=== PATIENT | male | born 1970 | race Caucasian/White ===

== ENCOUNTER 2023-10-05 07:35 | Outpatient (OUT) | payer OTHER, SELFPAY ==
[2023-10-05 08:09] LABS: Basophils Percent Auto 0.5 % (0.2-2.0); Eosinophils Absolute Auto 0.3 10^3/uL (0.0-0.7); Eosinophils Percent Auto 3.7 % (0.9-7.0); Hematocrit 41.2 % (42.0-54.0); Hemoglobin 13.9 g/dL (14.0-18.0); Immature Granulocytes Abs Auto 0.02 10^3/uL (0.00-0.03); Immature Granulocytes Pct Auto 0.3 % (0.0-0.5); Lymphocytes Absolute Auto 2.4 10^3/uL (1.2-3.8); Lymphocytes Percent Auto 30.4 % (20.5-60.0); Mean Corpuscular HGB Conc 33.7 g/dL (29.9-35.2); Mean Corpuscular Hemoglobin 28.4 pg (25.9-34.0); Mean Corpuscular Volume 84.1 fL (80.0-94.0); Mean Platelet Volume 9.4 fL (9.5-13.5); Monocytes Absolute Auto 0.8 10^3/uL (0.3-0.8); Monocytes Percent Auto 10.1 % (1.7-12.0); Neutrophils Absolute Auto 4.3 10^3/uL (1.4-6.5); Platelet Count 225 10^3/uL (150-450); Red Cell Distribution Width 13.5 % (11.0-15.0); White Blood Count 7.9 10^3/uL (4.0-11.0)
[2023-10-05 08:57] LABS: Alanine Aminotransferase 37 U/L (16-63); Albumin Level 3.6 g/dL (3.4-5.0); Alkaline Phosphatase 57 U/L (46-116); Anion Gap 14.5; Aspartate Amino Transferase 30 U/L (15-37); Calcium 8.9 mg/dL (8.5-10.1); Carbon Dioxide 24.7 mmol/L (21.0-32.0); Chloride 102 mmol/L (98-107); Chol HDL Ratio 4.4; Cholesterol 235 mg/dL (<=200); Estimated GFR (African America >60 (>=60); Estimated GFR (Non-African Ame >60 (>=60); Globulin 3.6 g/dL; Glucose 118 mg/dL (74-106); HDL Cholesterol 54 mg/dL (40-60); Potassium 4.2 mmol/L (3.5-5.1); Sodium 137 mmol/L (136-145); Total Protein 7.2 g/dL (6.4-8.2); Triglycerides 163 mg/dL (<=150); VLDL CHOLESTEROL 32.6 mg/dL
[2023-10-05 09:13] LABS: Estimated Average Glucose 128 mg/dL; Glycohemoglobin A1C 6.1 % (4.5-6.2)
== END 2023-10-05 07:36 | disposition home or self-care (01) ==
LOC: LAB 07:38
PROVIDERS: PCP Family Medicine; Visit Provider Family Medicine
DX: Z00.00 Encounter for general adult medical examination without abnormal findings (principal)
CPT/HCPCS: 36415; 80053; 80061; 83036; 85025; G0103

== ENCOUNTER 2023-12-19 07:25 | Outpatient (OUT) | payer OTHER, SELFPAY ==
--- OUTSIDE RECORDS SUMMARY | 2023-12-19 07:29 | XMS_ITS | CCD ---
Author Organization [facility] Care Team Providers Care Executive Chairman Of The Board Name Role Phone DR SALOMON SANFORD Primary Care Unavailable CLARIBEL, DR LATIF Admitting Unavailable CLARIBEL, DR LATIF Attending Unavailable CLARIBEL, DR LATIF Consulting Unavailable DR SALOMON SANFORD Admitting Unavailable CLARIBEL, DR LATIF Attending Unavailable CLARIBEL, DR LATIF Consulting Unavailable DR SALOMON SANFORD Primary Care Unavailable Problems Active Problems Problem Classification Problem Date Documented Da te Episodic/Chronic Chronic obstructive pulmonary disease and bronchiectasis (1 source) Bronchitis, not specified as acute or chronic; Translations: [BRONCHITIS NOT SPEC ACUTE/CHRON] Onset: 09-02-2022 Episodic Other screening for suspected conditions (not mental disorders or infectious disease) (1 source) Encounter for screening for malignant neoplasm of prostate; Translations: [ENC SCREEN MALIG NEOPLASM PROSTATE] Onset: 10-16-2022 Episodic Unclassified (3 sources) CONTACT W/AND (SUSP) EXPOS COVID-19; Translations: [CONTACT W/AND (SUSP) EXPOS COVID-19] Onset: 09-02-2022 Past or Other Problems Problem Classification Problem Date Documented Da te Episodic/Chronic Unclassified (1 source) CONTACT W/AND (SUSP) EXPOS COVID-19; Translations: [CONTACT W/AND (SUSP) EXPOS COVID-19] Onset: 08-28-2022 Results Test Name Value Interpretation Reference Range Facil ity INSULINon 10-12-2022 Insulin 13.5 uIU/mL Normal 2.6-24.9 [facility] Comment on above: Performed By: #### I NSULIN #### [facility] [address] [address] [address] Reji Simmons CBC AUTO DIFFon 10-11-2022 BASO # 0.1 103/ul Normal 0.0-0.1 [facility] Comment on above: Performed By: #### C BC #### [facility] [address] [place] [address] Dr. Reji Simmons Basophils/100 WBC (Bld) 0.8 % Normal 0.2-2.0 [facility] Comment on above: Performed By: #### C BC #### [facility] [address] [place] [address] Dr. Reji Simmons EO # 0.2 103/ul Normal 0.0-0.7 [facility] Comment on above: Performed By: #### C BC #### [facility] [address] [place] [address] Dr. Reji Simmons Eosinophils/100 WBC (Bld) 3.2 % Normal 0.9-7.0 [facility] Comment on above: Performed By: #### C BC #### [facility] [address] [place] [address] Dr. Reji Simmons Erythrocyte distribution width (RBC) [Ratio] 14.1 % Normal 11.0-15.0 [facility] Comment on above: Performed By: #### C BC #### [facility] [address] [place] [address] Dr. Reji Simmons Hematocrit (Bld) [Volume fraction] 42.3 % Normal 42.0-54.0 [facility] Comment on above: Performed By: #### C BC #### [facility] [address] [place] [address] Dr. Reji Simmons Hemoglobin (Bld) [Mass/Vol] 14.0 g/dL Normal 14.0-18.0 [facility] Comment on above: Performed By: #### C BC #### [facility] [address] [place] [address] Dr. Reji Simmons IG # 0.01 10e3/ul Normal 0.00-0.03 [facility] Comment on above: Performed By: #### C BC #### [facility] [address] [place] [address] Dr. Reji Simomns IG % 0.2 % Normal 0.0-0.5 [facility] Comment on above: Performed By: #### C BC #### [facility] [address] [place] [address] Dr. Reji Simmons LYMPH # 2.3 103/ul Normal 1.2-3.8 [facility] Comment on above: Performed By: #### C BC #### [facility] [address] [place] [address] Dr. Reji Simmons Lymphocytes/100 WBC (Bld) 35.1 % Normal 20.5-60.0 [facility] Comment on above: Performed By: #### C BC #### [facility] [address] [place] [address] Dr. Reji Simmons MANUAL DIFF REQ NO Normal [facility] Comment on above: Performed By: #### C BC #### [facility] [address] [place] [address] Dr. Reji Simmons MCH (RBC) [Entitic mass] 27.2 pg Normal 25.9-34.0 [facility] Comment on above: Performed By: #### C BC #### [facility] [address] [place] [address] Dr. Reji Simmons MCHC (RBC) [Mass/Vol] 33.1 g/dL Normal 29.9-35.2 [facility] Comment on above: Performed By: #### C BC #### [facility] [address] [place] [address] Dr. Reji Simmons MCV (RBC) [Entitic vol] 82.3 fL Normal 80.0-94.0 [facility] Comment on above: Performed By: #### C BC #### [facility] [address] [place] [address] Dr. Reji Simmons MONO # 0.6 103/ul Normal 0.3-0.8 [facility] Comment on above: Performed By: #### C BC #### [facility] [address] [place] [address] Dr. Reji Simmons Monocytes/100 WBC (Bld) 9.8 % Normal 1.7-12.0 [facility] Comment on above: Performed By: #### C BC #### [facility] [address] [address] [address] Reji Simmons NEUT # 3.4 103/ul Normal 1.4-6.5 [facility] Comment on above: Performed By: #### C BC #### [facility] [address] [address] [address] Reji Simmons Neutrophils/100 WBC (Bld) 50.9 % Normal 43.0-75.0 [facility] Comment on above: Performed By: #### C BC #### [facility] [address] [address] [address] Reji Simmons Platelet mean volume (Bld) [Entitic vol] 8.8 fL Critically low 9.5-13.5 [facility] Comment on above: Performed By: #### C BC #### [facility] [address] [place] [address] Dr. Reji Simmons PLT 232 103/ul Normal 150-450 [facility] Comment on above: Performed By: #### C BC #### [facility] [address] [place] [address] Dr. Reji Simmons RBC 5.14 106/ul Normal 4.70-6.10 [facility] Comment on above: Performed By: #### C BC #### [facility] [address] [address] [address] Reji Simmons WBC 6.6 103/ul Normal 4.0-11.0 [facility] Comment on above: Performed By: #### C BC #### [facility] [address] [place] [address] Dr. Reji Simmons GLYCOHEMOGLOBIN A1Con 2022 ADA RECOMMENDATION SEE BELOW Normal [facility] Comment on above: Result Comment: ADA RECOMMENDED LIMIT 4.0 - 6.0 ADA THERAPEUTIC TARGET < 7.0 ACTION SUGGESTED > 7.0 Performed By: #### A 1C #### [facility] [address] [place] [address] Dr. Reji Simmons Glucose [Mass/Vol] 128 mg/dL Normal [facility] Comment on above: Performed By: #### A 1C #### [facility] [address] [address] [address] Reji Simmons HbA1c (Bld) [Mass fraction] 6.1 % Normal 4.5-6.2 [facility] Comment on above: Performed By: #### A 1C #### [facility] [address] [address] [address] Reji Simmons LIPID PROFILEon 10-11-2022 CHOL-HDL RATIO NORM SEE BELOW Normal [facility] Comment on above: Result Comment: 3.3 - 4.4 LOW RISK 4.4 - 7.1 AVERAGE RISK 7.1 - 11.0 MODERATE RISK >11.0 HIGH RISK Performed By: #### U SHAMIR, LIPID, CMP #### [facility] [address] [address] [address] Reji Simmons Cholesterol [Mass/Vol] 215 mg/dL Critically high <=200 [facility] Comment on above: Performed By: #### U SHAMIR, LIPID, CMP #### [facility] [address] [address] [address] Reji Simmons Cholesterol in HDL [Mass/Vol] 50 mg/dL Normal 40-60 [facility] Comment on above: Performed By: #### U SHAMIR, LIPID, CMP #### [facility] [address] [address] [address] Reji Simmons Cholesterol in LDL [Mass/Vol] 131.6 mg/dL Normal [facility] Comment on above: Performed By: #### U SHAMIR, LIPID, CMP #### [facility] [address] [address] [address] Reji Simmons Cholesterol.total/Cho lesterol in HDL [Mass ratio] 4.3 {ratio} Normal [facility] Comment on above: Performed By: #### U SHAMIR, LIPID, CMP #### [facility] [address] [address] [address] Reji Simmons HDL NORMAL > or = 60 mg/dl - LOW CARDIOVASCULAR RISK <40 mg/dl - HIGH CARDIOVASCULAR RISK Normal [facility] Comment on above: Performed By: #### U SHAMIR, LIPID, CMP #### [facility] [address] [address] [address] Reji Simmons LDL CALC NORMAL SEE BELOW Normal [facility] Comment on above: Result Comment: <100 mg/dl OPTIMAL 100 - 129 mg/dl NEAR OR ABOVE OPTIMAL 130 - 159 mg/dl BORDERLINE HIGH 160 - 189 mg/dl HIGH >190 mg/dl VERY HIGH Performed By: #### U SHAMIR, LIPID, CMP #### [facility] [address] [address] [address] Reji Simmons Triglyceride [Mass/Vol] 167 mg/dL Critically high <=150 [facility] Comment on above: Performed By: #### U SHAMIR, LIPID, CMP #### [facility] [address] [address] [address] Reji Simmons VLDL CALC 33.4 mg/dL Normal [facility] Comment on above: Performed By: #### U SHAMIR, LIPID, CMP #### [facility] [address] [place] [address] Dr. Reji Simmons PROF 14(COMP METB)on 023 Albumin [Mass/Vol] 3.9 g/dL Normal 3.4-5.0 [facility] Comment on above: Performed By: #### U SHAMIR, LIPID, CMP #### [facility] [address] [address] [address] Reji Simmons Albumin/Globulin [Mass ratio] 1.2 {ratio} Normal [facility] Comment on above: Performed By: #### U SHAMIR, LIPID, CMP #### [facility] [address] [address] [address] Reji Simmons ALP [Catalytic activity/Vol] 63 U/L Normal 46-116 [facility] Comment on above: Performed By: #### U SHAMIR, LIPID, CMP #### [facility] [address] [address] [address] Reji Simmons ALT [Catalytic activity/Vol] 45 U/L Normal 16-63 [facility] Comment on above: Performed By: #### U SHAMIR, LIPID, CMP #### [facility] [address] [address] [address] Reji Simmons Anion gap [Moles/Vol] 11.6 mmol/L Normal [facility] Comment on above: Performed By: #### U SHAMIR, LIPID, CMP #### [facility] [address] [address] [address] Reji Simmons AST [Catalytic activity/Vol] 34 U/L Normal 15-37 [facility] Comment on above: Performed By: #### U SHAMIR, LIPID, CMP #### [facility] [address] [address] [address] Reji Simmons Bilirubin [Mass/Vol] 0.9 mg/dL Normal 0.2-1.0 [facility] Comment on above: Performed By: #### U SHAMIR, LIPID, CMP #### [facility] [address] [place] [address] Dr. Reji Simmons Calcium [Mass/Vol] 9.0 mg/dL Normal 8.5-10.1 [facility] Comment on above: Performed By: #### U SHAMIR, LIPID, CMP #### [facility] [address] [place] [address] Dr. Reji Simmons Chloride [Moles/Vol] 104 mmol/L Normal 98-107 [facility] Comment on above: Performed By: #### U SHAMIR, LIPID, CMP #### [facility] [address] [place] [address] Dr. Reji Simmons CO2 [Moles/Vol] 29.2 mmol/L Normal 21.0-32.0 [facility] Comment on above: Performed By: #### U SHAMIR, LIPID, CMP #### [facility] [address] [place] [address] Dr. Reji Simmons Creatinine [Mass/Vol] 0.84 mg/dL Normal 0.70-1.30 [facility] Comment on above: Performed By: #### U SHAMIR, LIPID, CMP #### [facility] [address] [place] [address] Dr. Reji Simmons EGFR-AF MALTESE >60 Normal >=[address] [facility] Comment on above: Performed By: #### U SHAMIR, LIPID, CMP #### [facility] [address] [place] [address] Dr. Reji Simmons EGFR-NON AF MALTESE >60 Normal >=60 [facility] Comment on above: Performed By: #### U SHAMIR, LIPID, CMP #### [facility] [address] [address] [address] Reji Simmons Globulin (S) [Mass/Vol] 3.2 g/dL Normal [facility] Comment on above: Performed By: #### U SHAMIR, LIPID, CMP #### [facility] [address] [address] [address] Reji Simmons Glucose [Mass/Vol] 108 mg/dL Critically high 74-106 [facility] Comment on above: Performed By: #### U SHAMIR, LIPID, CMP #### [facility] [address] [place] [address] Dr. Reji Simmons Potassium [Moles/Vol] 3.8 mmol/L Normal 3.5-5.1 [facility] Comment on above: Performed By: #### U SHAMIR, LIPID, CMP #### [facility] [address] [place] [address] Dr. Reji Simmons Protein [Mass/Vol] 7.1 g/dL Normal 6.4-8.2 [facility] Comment on above: Performed By: #### U SHAMIR, LIPID, CMP #### [facility] [address] [place] [address] Dr. Reji Simmons Sodium [Moles/Vol] 141 mmol/L Normal 136-145 [facility] Comment on above: Performed By: #### U SHAMIR, LIPID, CMP #### [facility] [address] [place] [address] Dr. Reji Simmons Urea nitrogen [Mass/Vol] 18.0 mg/dL Normal 7.0-18.0 [facility] Comment on above: Performed By: #### U SHAMIR, LIPID, CMP #### [facility] [address] [place] [address] Dr. Reji Simmons Urea nitrogen/Creatinine [Mass ratio] 21.4 mg/mg Normal [facility] Comment on above: Performed By: #### U SHAMIR, LIPID, CMP #### [facility] [address] [place] [address] Dr. Reji Simmons URIC ACID SERUMon 10-11-2022 Urate [Mass/Vol] 5.6 mg/dL Normal 3.5-7.[address] [facility] Comment on above: Performed By: #### U SHAMIR, LIPID, CMP #### [facility] [address] [address] [address] Reji Simmons Covid-19 PCR (CVDTB)on SARS-CoV-2 (COVID-19) RNA LAWRENCE+probe Ql (Unsp spec) Not detected Normal NOT DETECTED [facility] Comment on above: Result Comment: When diagnostic testing is negative, the possibility of a false negative should be considered in the context of a patient's recent exposures and the presence of clinical signs and symptoms consistent with SARS-CoV-2. This test is not yet approved or cleared by the [place] FDA. When there are no FDA-approved or cleared tests available, and other criteria are met, FDA can make tests available under an emergency access mechanism called an Emergency Use Authorization (EUA). The EUA for this test is supported by the [place] of Health and Human Service's declaration that circumstances exist to justify the emergency use of in vitro diagnostics for the detection and/or diagnosis of the virus that causes COVID-19. This EUA will remain in effect for the duration of the COVID-19 declaration justifying emergency of IVDs, unless it is terminated or revoked by the FDA (after which the test may no longer be used). Performed By: #### C VDTBH #### [facility] [address] [place] [address] Dr. Reji Simmons INFLUENZA A AND B AGon 08-28 INFLUANEGH SEE BELOW Normal [facility] Comment on above: Result Comment: Nega tive for Flu A protein angiten. Infection due to Flu A cannot be ruled out. Flu A angiten in the sample may be below the detection limit of the test. Performed By: #### I NFLUAB #### [facility] [address] [place] [address] Dr. Reji Simmons INFLUBNEGH SEE BELOW Normal [facility] Comment on above: Result Comment: Nega tive for Flu B protein antigen. Infection due to Flu B cannot be ruled out. Flu B antigen in the sample may be below the detection limit of the test. Performed By: #### I NFLUAB #### [facility] [address] [address] [address] Reji Simmons INFLUENZA A AG Negative Normal NEGATIVE SEE COMMENT [facility] Comment on above: Performed By: #### I NFLUAB #### [facility] [address] [address] [address] Reji Simmons INFLUENZA B AG Negative Normal NEGATIVE SEE COMMENT [facility] Comment on above: Performed By: #### I NFLUAB #### [facility] [address] [address] [address] Reji Simmons INTERNAL CONTROLS Within Normal Limits Normal Wi thin Normal Limits [facility] Comment on above: Performed By: #### I NFLUAB #### [facility] [address] [place] [address] Dr. Reji Simmons Encounters Encounter Date Encounter Type Care Provider Facility Start: 10-16-2022 Encounter for genera l adult medical examination without abnormal findings DR SALOMON SANFORD [facility] Start: 10-11-2022 End: 10-12-[address] SALOMON SANFORD Facility:[facility] Start: 10-11-2022 End: 10-12-2022 Encounter for general adult medical examination without abnormal findings DR SALOMON SANFORD Facility:[facility] Start: 08-28-2022 End: 08-28-[address] SALOMON SANFORD Facility:[facility] Procedures Date Procedure Procedure Detail Performing Clinician Start: 10-11-[address] LUIS ALFREDO SANFORD Comment on above: Performed By: #### P SASC #### [facility] [address] [place] [address] Dr. Reji Simmons Payers Date Payer Category Payer Unknown [id number] 1970 Unknown [id number] 1958 Unknown [id number] Summary Purpose Family History No Family History Records Found Advance Directives No Advanced Directives Records Found Additional Source Comments (unrecognized sect ion and content) No Status Records Found INFORMATION SOURCE (unrecogn ized section and content) DATE CREATED AUTHOR 10/18/2022 Vidya oleary FOR RECORDS PERTAINING TO PATIENTS WHO ARE OR HAVE BEEN ENROLLED IN A CHEMICAL DEPENDENCY/SUBSTANCEABUSE PROGRAM, SOME INFORMATION MAY BE OMITTED. This clinical summary was aggregated from multiple sources. Caution should be exercised in using it in the provision of clinical care. This summary normalizes information from multiple sources, and as a consequence, information in this document may materially change the coding, format and clinical context of patient data. In addition, data may be omitted in some cases. CLINICAL DECISIONS SHOULD BE BASED ON THE PRIMARY CLINICAL RECORDS. [facility] [address] provides no warranty or guarantee of the accuracy or completeness of information in this document.
[2023-12-19 08:24] LABS: Basophils Absolute Auto 0.1 10^3/uL (0.0-0.1); Basophils Percent Auto 0.8 % (0.2-2.0); Eosinophils Absolute Auto 0.3 10^3/uL (0.0-0.7); Eosinophils Percent Auto 4.5 % (0.9-7.0); Hematocrit 41.9 % (42.0-54.0); Hemoglobin 13.8 g/dL (14.0-18.0); Immature Granulocytes Abs Auto 0.01 10^3/uL (0.00-0.03); Immature Granulocytes Pct Auto 0.2 % (0.0-0.5); Lymphocytes Absolute Auto 2.3 10^3/uL (1.2-3.8); Lymphocytes Percent Auto 36.4 % (20.5-60.0); Mean Corpuscular HGB Conc 32.9 g/dL (29.9-35.2); Mean Corpuscular Hemoglobin 27.9 pg (25.9-34.0); Mean Corpuscular Volume 84.6 fL (80.0-94.0); Monocytes Absolute Auto 0.7 10^3/uL (0.3-0.8); Monocytes Percent Auto 10.4 % (1.7-12.0); Neutrophils Percent Auto 47.7 % (43.0-75.0); Platelet Count 243 10^3/uL (150-450); Red Blood Count 4.95 10^6/uL (4.70-6.10); White Blood Count 6.3 10^3/uL (4.0-11.0)
[2023-12-19 08:43] LABS: Alanine Aminotransferase 45 U/L (16-63); Albumin Globulin Ratio 1.1; Albumin Level 3.7 g/dL (3.4-5.0); Alkaline Phosphatase 62 U/L (46-116); Anion Gap 13.2; Aspartate Amino Transferase 27 U/L (15-37); Bilirubin Total 0.8 mg/dL (0.2-1.0); Calcium 8.9 mg/dL (8.5-10.1); Carbon Dioxide 28.1 mmol/L (21.0-32.0); Chloride 103 mmol/L (98-107); Estimated GFR (African America >60 (>=60); Estimated GFR (Non-African Ame >60 (>=60); Globulin 3.4 g/dL; Glucose 106 mg/dL (74-106); Potassium 4.3 mmol/L (3.5-5.1); Sodium 140 mmol/L (136-145); Total Protein 7.1 g/dL (6.4-8.2)
[2023-12-19 08:47] LABS: INR 0.98; Prothrombin Time 10.4 sec (9.0-11.6)
[2023-12-19 09:08] LABS: Partial Thromboplastin Time 28.8 sec (22.3-36.2)
== END 2023-12-19 07:26 | disposition home or self-care (01) ==
LOC: LAB 07:28
PROVIDERS: PCP Family Medicine; Visit Provider Family Medicine
DX: K62.5 Hemorrhage of anus and rectum (principal)
CPT/HCPCS: 36415; 80053; 85025; 85610; 85730

== ENCOUNTER 2023-12-20 15:37 | Outpatient (REF) | payer OTHER, SELFPAY ==
[2023-12-21 15:34] LABS: Occult Blood Negative
== END 2023-12-20 15:38 | disposition home or self-care (01) ==
LOC: LAB 15:37
PROVIDERS: PCP Family Medicine; Visit Provider Family Medicine
DX: K62.5 Hemorrhage of anus and rectum (principal)
CPT/HCPCS: G0328

== ENCOUNTER 2024-09-25 13:48 | Outpatient (OUT) | payer OTHER, SELFPAY ==
--- OUTSIDE RECORDS SUMMARY | 2024-09-25 13:53 | XMS_ITS | CCD ---
Author Organization [facility] Care Team Providers Care Parts Counter Clerk Name Role Phone DR SALOMON LANDA Primary Care Unavailable DR SALOMON LANDA Admitting Unavailable DR SALOMON LANDA Attending Unavailable DR SALOMON LANDA Consulting Unavailable DR SALOMON LANDA Admitting Unavailable DR SALOMON LANDA Attending Unavailable DR SALOMON LANDA Consulting Unavailable DR SALOMON LANDA Primary Care Unavailable Salomon Landa Primary Care Physician Bucky CHAMBERLAIN Attending Unavailable Salomon Landa Referring Unavailable Allergies Allergy Classification Reported Allergen(s) Allergy Type Date of Onset Reaction(s) Facility (1 source) No Known Medication Allergies; Translations: [No Known Medication Allergies] Propensity to adverse reactions (disorder) [facility] Medications Current Medications Medication Drug Class(es) Dates Sig (Normalized) Sig (Original) tadalafil 20 mg oral tablet (1 source) Phosphodiesterase 5 Inhibitor Start: 08-22-2024 take 1 tablet by mouth once daily as needed tadalafil 20 mg Tab 20 mg = 1 tab(s), Oral, Daily, PRN erectile dysfunction, Refills(s) 0 Start Date: 08/22/24 Status: Ordered Problems Active Problems Problem Classification Problem Date Documented Date Episodic/Chronic Chronic obstructive pulmonary disease and bronchiectasis (1 source) Bronchitis, not specified as acute or chronic; Translations: [BRONCHITIS NOT SPEC ACUTE/CHRON] Onset: 09-02-20 Episodic Disorders of lipid metabolism (1 source) Hypercholesterolemia 08-22-2024 Chronic Gastrointestinal hemorrhage (2 sources) Hemorrhage of rectum and anus; Translations: [Hemorrhage of anus and rectum] Onset: 09-09-20 Episodic Other male genital disorders (1 source) Impotence 08-22-2024 Chronic Other nutritional; endocrine; and metabolic disorders (1 source) Body mass index 30+ - obesity 09-09-2024 Chronic Other nutritional; endocrine; and metabolic disorders (1 source) Obesity caused by energy imbalance 08-22-2024 Chronic Other screening for suspected conditions (not mental disorders or infectious disease) (1 source) Encounter for screening for malignant neoplasm of prostate; Translations: [ENC SCREEN MALIG NEOPLASM PROSTATE] Onset: 10-16-19 23 Episodic Unclassified (3 sources) CONTACT W/AND (SUSP) EXPOS COVID-19; Translations: [CONTACT W/AND (SUSP) EXPOS COVID-19] Onset: 09-02-20 Past or Other Problems Problem Classification Problem Date Documented Da te Episodic/Chronic Unclassified (1 source) CONTACT W/AND (SUSP) EXPOS COVID-19; Translations: [CONTACT W/AND (SUSP) EXPOS COVID-19] Onset: 08-28-2022 Results Test Name Value Interpretation Reference Range Facility Ambulatory Visit Summaryon 1 11-10-2023 Ambulatory Visit Summary Ambulatory Visit Summary JONATAN ANDUJAR :1970 Visit Date:09/09/2024 Ambulatory Visit Instructions Your Care Team Attending Physician - BULMARO RAMIREZ, Bucky Orat Primary Care Physician - Salomon Landa MD Referring Physician - Salomon Landa MD This Is Your Medications List Contact prescribing physician if questions or concerns tadalafil (tadalafil 20 mg Tab) Procedures Performed Colonoscopy (09/11/2016), EGD - esophagogastroduodenoscopy (09/11/2016), Arthroscopy of knee, Traumatic amputation of left index finger. Discharge Vitals Heart Rate (Peripheral) 72 Respiratory Rate 16 Blood Pressure 138/84 Height 177.8 cm Height 70 in Weight 105.6 kg Weight 232.808 lb BMI 33.4 Medications What How Much When Instructions Unchanged tadalafil (tadalafil 20 mg Tab) 1 Tablets By Mouth Every day as needed for erectile dysfunction Contact prescribing physician if questions or concerns Allergies No Known Allergies No Known Medication Allergies Problems Ongoing - Any problem that you are currently receiving treatment for. BMI 33.0-33.9,adult BRBPR (bright red blood per rectum) Erectile dysfunction Hypercholesterolemia Obesity due to excess calories Patient Survey You may receive a survey via text or e-mail asking about your office visit. Please share your experience with us by completing your survey. We appreciate your feedback and thank you for choosing us for your care. Normal [facility] INSULINon 10-12-2022 Insulin 13.5 uIU/mL Normal 2.6-24.9 [facility] Comment on above: Performed By: #### I NSULIN #### [facility] [address] [place] [address] Dr. Reji Simmons CBC AUTO DIFFon 10-11-2022 BASO # 0.1 103/ul Normal 0.0-0.1 [facility] Comment on above: Performed By: #### C BC #### [facility] [address] [place] [address] Dr. Reji Simmons Basophils/100 WBC (Bld) 0.8 % Normal 0.2-2.0 [facility] Comment on above: Performed By: #### C BC #### [facility] [address] [place] [address] Dr. Reji Simmons EO # 0.2 103/ul Normal 0.0-0.7 [facility] Comment on above: Performed By: #### C BC #### [facility] [address] [place] [address] Dr. Reji Simmons Eosinophils/100 WBC (Bld) 3.2 % Normal 0.9-7.0 [facility] Comment on above: Performed By: #### C BC #### [facility] [address] [place] [address] Dr. Reji Simmons Erythrocyte distribution width (RBC) [Ratio] 14.1 % Normal 11.0-15.0 [facility] Comment on above: Performed By: #### C BC #### [facility] [address] [place] [address] Dr. Reji Simmons Hematocrit (Bld) [Volume fraction] 42.3 % Normal 42.0-54.0 [facility] Comment on above: Performed By: #### C BC #### [facility] [address] [place] [address] Dr. Reji Simmons Hemoglobin (Bld) [Mass/Vol] 14.0 g/dL Normal 14.0-18.0 [facility] Comment on above: Performed By: #### C BC #### [facility] [address] [place] [address] Dr. Reji Simmons IG # 0.01 10e3/ul Normal 0.00-0.03 [facility] Comment on above: Performed By: #### C BC #### [facility] [address] [place] [address] Dr. Reji Simmons IG % 0.2 % Normal 0.0-0.5 [facility] Comment on above: Performed By: #### C BC #### [facility] [address] [place] [address] Dr. Reji Simmons LYMPH # 2.3 103/ul Normal 1.2-3.8 [facility] Comment on above: Performed By: #### C BC #### [facility] [address] [place] [address] Dr. Reji Simmons Lymphocytes/100 WBC (Bld) 35.1 % Normal 20.5-60.0 [facility] Comment on above: Performed By: #### C BC #### [facility] [address] [place] [address] Dr. Reji Simmons MANUAL DIFF REQ NO Normal [facility] Comment on above: Performed By: #### C BC #### [facility] [address] [place] [address] Dr. Reji Simmosn MCH (RBC) [Entitic mass] 27.2 pg Normal 25.9-34.0 [facility] Comment on above: Performed By: #### C BC #### [facility] [address] [place] [address] Dr. Reji Simmons MCHC (RBC) [Mass/Vol] 33.1 g/dL Normal 29.9-35.2 [facility] Comment on above: Performed By: #### C BC #### [facility] [address] [place] [address] Dr. Reji Simmons MCV (RBC) [Entitic vol] 82.3 fL Normal 80.0-94.0 [facility] Comment on above: Performed By: #### C BC #### [facility] [address] [place], [place] [id number] Dr. Reji Simmons MONO # 0.6 103/ul Normal 0.3-0.8 [facility] Comment on above: Performed By: #### C BC #### [facility] [address] [place] [address] Dr. Reji Simmons Monocytes/100 WBC (Bld) 9.8 % Normal 1.7-12.0 [facility] Comment on above: Performed By: #### C BC #### [facility] [address] [place] [address] Dr. Reji Simmons NEUT # 3.4 103/ul Normal 1.4-6.5 [facility] Comment on above: Performed By: #### C BC #### [facility] [address] [place] [address] Dr. Reji Simmons Neutrophils/100 WBC (Bld) 50.9 % Normal 43.0-75.0 [facility] Comment on above: Performed By: #### C BC #### [facility] [address] [place] [address] Dr. Reji Simmons Platelet mean volume (Bld) [Entitic vol] 8.8 fL Critically low 9.5-13.5 [facility] Comment on above: Performed By: #### C BC #### [facility] [address] [place] [address] Dr. Reji Simmons PLT 232 103/ul Normal 150-450 [facility] Comment on above: Performed By: #### C BC #### [facility] [address] [place] [address] Dr. Reji Simmons RBC 5.14 106/ul Normal 4.70-6.10 [facility] Comment on above: Performed By: #### C BC #### [facility] [address] [place] [address] Dr. Reji Simmons WBC 6.6 103/ul Normal 4.0-11.0 [facility] Comment on above: Performed By: #### C BC #### [facility] [address] [place] [address] Dr. Reji Simmons GLYCOHEMOGLOBIN A1Con 2022 ADA RECOMMENDATION SEE BELOW Normal [facility] Comment on above: Result Comment: ADA RECOMMENDED LIMIT 4.0 - 6.0 ADA THERAPEUTIC TARGET < 7.0 ACTION SUGGESTED > 7.0 Performed By: #### A 1C #### [facility] [address] [place] [address] Dr. Reji Simmons Glucose [Mass/Vol] 128 mg/dL Normal [facility] Comment on above: Performed By: #### A 1C #### [facility] [address] [address] [address] Reji Simmons HbA1c (Bld) [Mass fraction] 6.1 % Normal 4.5-6.2 [facility] Comment on above: Performed By: #### A 1C #### [facility] [address] [place] [address] Dr. Reji Simmons LIPID PROFILEon 10-11-2022 CHOL-HDL RATIO NORM SEE BELOW Normal [facility] Comment on above: Result Comment: 3.3 - 4.4 LOW RISK 4.4 - 7.1 AVERAGE RISK 7.1 - 11.0 MODERATE RISK >11.0 HIGH RISK Performed By: #### U SHAMIR, LIPID, CMP #### [facility] [address] [address] [address] Reji Simmons Cholesterol [Mass/Vol] 215 mg/dL Critically high <=200 [facility] Comment on above: Performed By: #### U SHAMIR, LIPID, CMP #### [facility] [address] [place] [address] Dr. Reji Simmons Cholesterol in HDL [Mass/Vol] 50 mg/dL Normal 40-60 [facility] Comment on above: Performed By: #### U SHAMIR, LIPID, CMP #### [facility] [address] [address] [address] Reji Simmons Cholesterol in LDL [Mass/Vol] 131.6 mg/dL Normal [facility] Comment on above: Performed By: #### U SHAMIR, LIPID, CMP #### [facility] [address] [place] [address] Dr. Reji Simmons Cholesterol.total/ Cholesterol in HDL [Mass ratio] 4.3 {ratio} Normal [facility] Comment on above: Performed By: #### U SHAMIR, LIPID, CMP #### [facility] [address] [address] [address] Reji Simmons HDL NORMAL > or = 60 mg/dl - LO W CARDIOVASCULAR RISK <40 mg/dl - HIGH CARDIOVASCULAR RISK Normal [facility] Comment on above: Performed By: #### U SHAMIR, LIPID, CMP #### [facility] [address] [address] [address] Reji Simmons LDL CALC NORMAL SEE BELOW Normal [facility] Comment on above: Result Comment: <100 mg/dl OPTIMAL 100 - 129 mg/dl NEAR OR ABOVE OPTIMAL 130 - 159 mg/dl BORDERLINE HIGH 160 - 189 mg/dl HIGH >190 mg/dl VERY HIGH Performed By: #### U SHAMIR, LIPID, CMP #### [facility] [address] [address] [address] Reji Simmons Triglyceride [Mass/Vol] 167 mg/dL Critically high <=150 [facility] Comment on above: Performed By: #### U SHAMIR, LIPID, CMP #### [facility] [address] [address] [address] Reji Simmons VLDL CALC 33.4 mg/dL Normal [facility] Comment on above: Performed By: #### U SHAMIR, LIPID, CMP #### [facility] [address] [place] [address] Dr. Reji Simmons PROF 14(COMP METB)on 023 Albumin [Mass/Vol] 3.9 g/dL Normal 3.4-5.0 [facility] Comment on above: Performed By: #### U SHAMIR, LIPID, CMP #### [facility] [address] [address] [address] Reji Simmons Albumin/Globulin [Mass ratio] 1.2 {ratio} Normal [facility] Comment on above: Performed By: #### U SHAMIR, LIPID, CMP #### [facility] [address] [address] [address] Reji Simmons ALP [Catalytic activity/Vol] 63 U/L Normal 46-116 [facility] Comment on above: Performed By: #### U SHAMIR, LIPID, CMP #### [facility] [address] [address] [address] Reji Simmons ALT [Catalytic activity/Vol] 45 U/L Normal 16-63 [facility] Comment on above: Performed By: #### U SHAMIR, LIPID, CMP #### [facility] [address] [address] [address] Reji Simmons Anion gap [Moles/Vol] 11.6 mmol/L Normal [facility] Comment on above: Performed By: #### U SHAMIR, LIPID, CMP #### [facility] [address] [address] [address] Reji Simmons AST [Catalytic activity/Vol] 34 U/L Normal 15-37 [facility] Comment on above: Performed By: #### U SHAMIR, LIPID, CMP #### [facility] [address] [address] [address] Reji Simmons Bilirubin [Mass/Vol] 0.9 mg/dL Normal 0.2-1.0 [facility] Comment on above: Performed By: #### U SHAMIR, LIPID, CMP #### [facility] [address] [address] [address] Reji Simmons Calcium [Mass/Vol] 9.0 mg/dL Normal 8.5-10.1 [facility] Comment on above: Performed By: #### U SHAMIR, LIPID, CMP #### [facility] [address] [address] [address] Reji Simmons Chloride [Moles/Vol] 104 mmol/L Normal 98-107 [facility] Comment on above: Performed By: #### U SHAMIR, LIPID, CMP #### [facility] [address] [address] [address] Reji Simmons CO2 [Moles/Vol] 29.2 mmol/L Normal 21.0-32.0 [facility] Comment on above: Performed By: #### U SHAMIR, LIPID, CMP #### [facility] [address] [address] [address] Reji Simmons Creatinine [Mass/Vol] 0.84 mg/dL Normal 0.70-1.30 [facility] Comment on above: Performed By: #### U SHAMIR, LIPID, CMP #### [facility] [address] [address] [address] Reji Simmons EGFR-AF CITIZEN [place] >60 Normal >=60 [facility] Comment on above: Performed By: #### U SHAMIR, LIPID, CMP #### [facility] [address] [address] [address] Reji Simmons EGFR-NON AF CITIZEN [place] >60 Normal >=60 [facility] Comment on above: Performed By: #### U SHAMIR, LIPID, CMP #### [facility] [address] [address] [address] Reji Simmons Globulin (S) [Mass/Vol] 3.2 g/dL Normal [facility] Comment on above: Performed By: #### U SHAMIR, LIPID, CMP #### [facility] [address] [address] [address] Reji Simmons Glucose [Mass/Vol] 108 mg/dL Critically high 74-106 [facility] Comment on above: Performed By: #### U SHAMIR, LIPID, CMP #### [facility] [address] [address] [address] Reji Simmons Potassium [Moles/Vol] 3.8 mmol/L Normal 3.5-5.1 [facility] Comment on above: Performed By: #### U SHAMIR, LIPID, CMP #### [facility] [address] [address] [address] Reji Simmons Protein [Mass/Vol] 7.1 g/dL Normal 6.4-8.2 [facility] Comment on above: Performed By: #### U SHAMIR, LIPID, CMP #### [facility] [address] [address] [address] Reji Simmons Sodium [Moles/Vol] 141 mmol/L Normal 136-145 [facility] Comment on above: Performed By: #### U SHAMIR, LIPID, CMP #### [facility] [address] [address] [address] Reji Simmons Urea nitrogen [Mass/Vol] 18.0 mg/dL Normal 7.0-18.0 [facility] Comment on above: Performed By: #### U SHAMIR, LIPID, CMP #### [facility] [address] [place] [address] Dr. Reji Simmons Urea nitrogen/Creatinin e [Mass ratio] 21.4 mg/mg Normal [facility] Comment on above: Performed By: #### U SHAMIR, LIPID, CMP #### [facility] [address] [place] [address] Dr. Reji Simmons URIC ACID SERUMon 10-11-2022 Urate [Mass/Vol] 5.6 mg/dL Normal 3.5-7.2 [facility] Comment on above: Performed By: #### U SHAMIR, LIPID, CMP #### [facility] [address] [place] [address] Dr. Reji Simmons Covid-19 PCR ([facility])on SARS-CoV-2 (COVID-19) RNA [place]WRENCE+probe Ql (Unsp spec) Not detected Normal NOT DETECTED [facility] Comment on above: Result Comment: When diagnostic [...] for this test is supported by the Computational Geneticist of Health and Human Service's declaration that [...] used). Performed By: #### C VDTBH #### [facility] [address] [place] [address] Dr. Reji Simmons INFLUENZA A AND B AGon 08-28 INFLUANEGH SEE BELOW Normal [facility] Comment on above: Result Comment: Nega tive for Flu A protein angiten. Infection due to Flu A cannot be ruled out. Flu A angiten in the sample may be below the detection limit of the test. Performed By: #### I NFLUAB #### [facility] [address] [place] [address] Dr. Reji Simmons [facility] SEE BELOW Normal [facility] Comment on above: Result Comment: Nega tive for Flu B protein antigen. Infection due to Flu B cannot be ruled out. Flu B antigen in the sample may be below the detection limit of the test. Performed By: #### I NFLUAB #### [facility] [address] [place] [address] Dr. Reji Simmons INFLUENZA A AG Negative Normal NEGATIVE SEE COMMENT [facility] Comment on above: Performed By: #### I NFLUAB #### [facility] [address] [place] [address] Dr. Reji Simmons INFLUENZA B AG Negative Normal NEGATIVE SEE COMMENT [facility] Comment on above: Performed By: #### I NFLUAB #### [facility] [address] [place] [address] Dr. Reji Simmons INTERNAL CONTROLS Within Normal Limits Normal Wi thin Normal Limits [facility] Comment on above: Performed By: #### I NFLUAB #### [facility] [address] [place] [address] Dr. Reji Simmons Vital Signs Date Time Vital Sign Value Performing Clinician Bharati junior 09-09-2024 13:02-0500 Blood Pressure Location Bucky CHAMBERLAIN [facility] [place] 09-09-2024 13:02-0500 Diastolic blood pressure 84 mm[Hg] Bucky CHAMBERLAIN [facility] [place] 09-09-2024 13:02-0500 Heart rate 72 /min Bucky CHAMBERLAIN [facility] [place] 09-09-2024 13:02-0500 Respiratory rate 16 /min Bucky CHAMBERLAIN [facility] [place] 09-09-2024 13:02-0500 Systolic blood pressure 138 mm[Hg] Bucky GILL [facility] [place] Encounters Encounter Date Encounter Type Care Provider Facility Start: 09-09-2024 End: 09-09-2024 ambulatory Bucky Orta [facility]OUISEL [facility] Start: 09-09-2024 End: 09-09-2024 Patient encounter procedure Bucky GILL [facility] Start: 08-19-2024 ambulatory Bucky GILL Facility:[facility] Start: 10-16-2022 Encounter for genera l adult medical examination without abnormal findings DR SALOMON LANDA [facility] Start: 10-11-2022 End: 10-12-[address] SALOMON LANDA Facility:[facility] Start: 10-11-2022 End: 10-12-2022 Encounter for general adult medical examination without abnormal findings DR SALOMON LANDA Facility:[facility] Start: 08-28-2022 End: 08-28-[address] SALOMON LANDA Facility:[facility] Procedures Date Procedure Procedure Detail Performing Clinician Start: 10-11-[address] SALOMON LANDA Comment on above: Performed By: #### PSASC #### [facility] [address] [place] [address] Dr. Reji Simmons Start: 09-11-2016 Colonoscopy Bucky GILL Start: 09-11-2016 Esophagogastroduodenoscopy Bucky NILL Arthroscopy of knee Bucky NILL Traumatic amputation of left index finger Bucky GILL Payers Date Payer Category Payer Unknown [id number] 1970 Unknown [id number] 1970 Unknown [id number] 1970 Unknown [id number] 1958 Unknown [id number] Social History Date Type Detail Facility Start: 09-09-2024 Tobacco smoking status Never s moked tobacco (finding) [facility] [place] Tobacco smoking status Never [facility] Sex Assigned At Male [facility] Functional Status Date Assessment Result Facility 09-09-2024 Functional Status N/A [facility] [place] Clinical Note 09-09-2024 Note Date & Type Note Facility 09-09-2024 Note General Surgery Offi ce/Clinic Note Chief Complaint consultation for rectal bleeding HPI Staff 54 year old male presents on consultation from Dr. Landa for intermittent rectal bleeding. Reports long standing history of intermittent bright red blood on toilet tissue and in toilet water. Denies abdominal or rectal pain. Denies bowel changes. No nausea, vomiting or unexplained weight loss. Last colonoscopy completed 08/2016 with internal hemorrhoid, otherwise negative. No known family history of colon cancer. History of Present Illness 54 yo male with h/o hypercholesterolemia, referred for intermittent BRBPR with bms for several years; no pain or hemorrhoid prolapse; no hard stool or straining, no hematochezia; last colonoscopy 2015 with internal hemorrhoid; no abd operations, no asa or NSAID use; no tobacco use; no fmhx of GI malignancy or IBD. Review of Systems PHQ Score Initial Depression Screen Score: 0 SCORE ROS - Provider Constitutional: no fever, no sweats, no weight loss. Eyes: no glasses, no blurred vision, no visual loss. ENMT: no dentures, no hoarseness, no swallowing difficulties, no hearing loss, no ear infection(s), no nose bleeds. Cardiovascular: normal blood pressure, no chest pain, regular heartbeat, no heart murmur. Respiratory: no shortness of breath, no cough, no asthma, no wheezing. Gastrointestinal: no nausea, no vomiting, no diarrhea, no constipation, no blood in stool, no change in bowel habits, no abdominal pain, no hepatitis. Genitourinary: no kidney stones, no urine infection, no dysuria. Musculoskeletal: no pain, no weakness. Skin: no changing moles, no rash, no skin lumps. Neurologic: no seizures, no epilepsy, no headache. Psychiatric: no emotional or psychiatric problem. Heme/Lymph: no bleeding problems, no anemia, no blood clots, no transfusions. Allergy/Immunologic: no swollen lymph nodes/glands, no IV drug abuse. Other: Additional ROS info: Except as noted in the above Review of Systems and in the History of Present Illness, all other systems have been reviewed and are negative or noncontributory. Physical Exam Vitals & Measurements HR: 72(Peripheral) RR: 16 BP: 138/84 HT: 70 in HT: 177.8 cm WT: 105.6 kg WT: 232.808 lb BMI: 33.4 HEENT: normal conjunctiva, sclera clear, no scleral icterus, EOM intact, PERRLA, oral mucosa moist without lesions. Neck: trachea midline, no mass, symmetric, no thyromegaly or nodules, no adenopathy Respiratory: lungs CTA, respirations non labored. Cardiovascular: regular rate and rhythm, no murmur, no pedal edema or varicosities. Gastrointestinal: soft, non distended, no tenderness, no masses, no palpable hernias, diastasis recti no, no hepatosplenomegaly; normal bs Lymphatic: no cervical adenopathy, no supraclavicular adenopathy. Musculoskeletal: normal gait, digits and nails without infection, nodes, cyanosis, clubbing. Skin: no rashes, no lesions, no ulcers, no subcutaneous nodules, induration. Psychiatric/Neuro: oriented to time, place, person, judgement normal, affect appropriate for age, insight intact, no focal deficits. Tests: , review of old records completed , Discussed surgical options, risks, and possible complications with patient. Assessment/Plan 1. BRBPR (bright red blood per rectum) (K62.5: Hemorrhage of anus and rectum) plan colonoscopy under anesthesia for further evaluation, informed consent obtained. Follow-up No qualifying data available Problem List/Past Medical History Ongoing BMI 33.0-33.9,adult BRBPR (bright red blood per rectum) Erectile dysfunction Hypercholesterolemia Obesity due to excess calories Historical No qualifying data Procedure/Surgical History Colonoscopy (09/11/2016), EGD - esophagogastroduodenoscopy (09/11/2016), Arthroscopy of knee, Traumatic amputation of left index finger. Medications tadalafil 20 mg Tab, 20 mg= 1 tab(s), Oral, Daily, PRN Allergies No Known Allergies No Known Medication Allergies Social History Alcohol Current. Beer. 1-2 times per week., 09/08/2024 Substance Abuse Never., 09/08/2024 Tobacco Never (less than 100 in lifetime) Tobacco Use:. Never Smokeless Tobacco Use:., 09/09/2024 Family History COPD: Father. Cancer: Mother. [facility] Comment on above: Result Comment: Elec tronically Signed By: BULMARO RAMIREZ, Bucky Matson.[email or web address]\Date and Time Signed: 09/09/24 13:35 EST Evaluation + Plan note Note Date & Type Note Facility Evaluation + Plan note No data available for this section [facility] Discharge instructions Note Date & Type Note Facility Hospital Discharge instructions No data available for this section [facility] Progress note Note Date & Type Note Facility Progress note No data available for this section [facility] Summary Purpose Family History No Family History Records Found No data available for this section No Family History Records Found Advance Directives No Advanced Directives Records FoundNo Advanced Directives Records Found Additional Source Comments (unrecognized sect ion and content) No Status Records FoundNo Status Records Found INFORMATION SOURCE (unrecogn ized section and content) DATE CREATED AUTHOR 10/18/2022 [facility] DATE CREATED AUTHOR AUTHOR'S ORGANIZ ATION 09/12/2024 [facility] Patient Care team informatio n (unrecognized section and content) Personnel Name: Salomon Landa MD Address: Address: [address] [place] [address] FOR RECORDS PERTAINING TO PATIENTS WHO ARE [...] BE BASED ON THE PRIMARY CLINICAL RECORDS. [facility]. provides no warranty or guarantee of the accuracy or completeness of information in this document.
== END 2024-09-25 13:49 | disposition home or self-care (01) ==
LOC: PST 13:48
PROVIDERS: PCP Family Medicine; Visit Provider Surgery
DX: K62.5 Hemorrhage of anus and rectum (principal)

== ENCOUNTER 2024-10-01 08:39 | Day surgery (SDC) | payer OTHER, SELFPAY ==
--- NOTE | 2024-10-01 | OP_ITS ---
OPERATION DATE: 10/01/2024 PREOPERATIVE DIAGNOSIS: Intermittent rectal bleeding. POSTOPERATIVE DIAGNOSIS: Prominent rectal veins. PROCEDURE: Colonoscopy to cecum. SURGEON: Bucky Drew M.D. ANESTHESIA: Monitored anesthesia care. ESTIMATED BLOOD LOSS: Zero. INDICATIONS AND CONSENT: Patient is a 54-year-old male with history of intermittent rectal bleeding. Indications, risks, benefits, alternatives of proceeding with colonoscopy were explained extensively to the patient, including the risks of bleeding, colon perforation or anesthetic complications. All of his questions were answered. Informed consent was obtained. PROCEDURE: Patient brought to the operating room, placed in the left lateral decubitus position. Monitored anesthesia care was provided. Rectal exam was performed which showed no masses or blood. The scope was inserted into the anal canal. Under direct visualization was advanced. With the aid of abdominal compression, it was advanced to the cecum where cecal markings were clearly identified. There was noted to be a good prep. Upon withdrawal of the scope, mucosal surfaces were carefully examined. There were no mass lesions or polyps. No inflammatory changes or bleeding. No old or new blood. No significant diverticulosis. There were some rare, right sided diverticula. No significant sigmoid diverticulosis. The scope was retroflexed in the anal canal. There were noted to be prominent rectal veins. No significant hemorrhoidal disease. The scope was then withdrawn. Patient tolerated procedure well, was sent to recovery room in good condition. f/u screening colonoscopy should be in 10 years. CC: Will Landa M.D. [facility]
[2024-10-01 08:50] VITALS: BP 142/95; PULSE 77; TEMP 36.4; O2SAT 96; BMI 33.6
[2024-10-01] MEDS: 0.9 % SODIUM CHLORIDE 500 ML 50 ML IV (09:11)
[2024-10-01 11:20] VITALS: BP 102/71; PULSE 69; TEMP 36.2; O2SAT 94
[2024-10-01 11:35] VITALS: BP 132/94; PULSE 76; O2SAT 96
[2024-10-01 11:50] VITALS: BP 149/101; PULSE 65; O2SAT 100
== END 2024-10-01 11:53 | disposition home or self-care (01) ==
PROVIDERS: PCP Family Medicine; Visit Provider Surgery
PROC: (CPT 811; principal; 2024-10-01 10:00)
DX: K62.5 Hemorrhage of anus and rectum (principal); E78.00 Pure hypercholesterolemia, unspecified
CPT/HCPCS: 00811; 45378; J2704